=== PATIENT | female | born 1950 | race Caucasian/White ===

== ENCOUNTER 2024-07-08 11:56 | Emergency (ER) | payer OTHER, MEDICAID, SELFPAY ==
[2024-07-08] VITALS (7 sets, daily range): BP systolic 128–191; BP diastolic 72–87; PULSE 60–88; RESP 18–97; TEMP 36.4–36.7; O2SAT 97–100; BMI 32.9
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
[2024-07-08] MEDS: ONDANSETRON INJ 2 MG/ML INJ 2 ML 4 MG IV ×2 (12:32→13:20)
[2024-07-08] MEDS: fentaNYL CIT INJ 50 mCg/ML AMP 2ML IVP (12:32)
[2024-07-08 12:36] LABS: Basophils % (Auto) 0 % (0-2.5); Eosinophils # (Auto) 0.1 Thou/mm3 (0.0-0.5); Eosinophils % (Auto) 2 % (0-10); Hematocrit 38.7 % (36.0-46.0); Hemoglobin 12.7 g/dL (12.0-16.0); Immature Granulocytes % (Auto) 0 % (0-0); Immature Granulocytes Auto 0.02 Thou/mm3 (0.00-0.00); Lymphocytes # (Auto) 2.4 Thou/mm3 (1.0-4.8); Lymphocytes % (Auto) 36 % (10-50); Mean Corpuscular HGB Conc 32.8 g/dl (31.0-37.0); Mean Corpuscular Hemoglobin 28.4 pg (25.0-35.0); Mean Corpuscular Volume 87 fL (80-100); Monocytes # (Auto) 0.4 Thou/mm3 (0.0-0.8); Monocytes % (Auto) 6 % (0-12); Neutrophils # (Auto) 3.8 Thou/mm3 (1.8-7.7); Neutrophils % (Auto) 56 % (37-80); Nucleated Red Blood Cell % 0 /100 WBC (0); Platelet Count 275 Thou/mm3 (140-440); RDW Standard Deviation 40.6 fL (36.4-46.3); Red Blood Count 4.47 Miln/mm3 (4.00-5.20); White Blood Count 6.9 Thou/mm3 (3.6-11.0)
[2024-07-08 12:57] LABS: Partial Thromboplastin Time 28.9 Seconds (22.0-36.0); Prothrombin Time 11.3 Seconds (9.0-12.2)
[2024-07-08 12:59] LABS: Alanine Aminotransferase 9 U/L (10-49); Albumin, Serum 4.5 gm/dL (3.4-4.8); Albumin/Globulin Ratio 1.7 (1.2-2.2); Alkaline Phosphatase 88 U/L (46-116); Anion Gap 7 (7-16); Aspartate Amino Transferase 15 U/L (0-34); BUN/Creatinine Ratio 11 Ratio (12-20); Bilirubin,Total 0.3 mg/dL (0.3-1.2); Blood Urea Nitrogen 10 mg/dL (9-23); Calcium 9.9 mg/dL (8.3-10.6); Calcium (Corrected) 9.9 mg/dL (8.5-10.1); Carbon Dioxide 25.6 mMol/L (20.0-31.0); Chloride 108 mMol/L (98-107); Creatinine (Component) 0.9 mg/dL (0.6-1.3); Estimated Creatinine Clearance 55.1 mL/min (>60); Globulin 2.6 gm/dL (2.3-3.5); Glucose 151 mg/dL (74-106); Osmolality,Calculated 283 (275-295); Potassium 4.2 mMol/L (3.4-5.1); Sodium 141 mMol/L (136-145); Total Protein 7.1 gm/dL (5.7-8.2); eGFR > 60 See Note
[2024-07-08] MEDS: MORPHINE SULF INJ 10 MG/ML VIAL 4 MG IVP (13:20)
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
== END 2024-07-08 16:20 | disposition home or self-care (01) ==
PROVIDERS: Registered Nurse General Practice; Emergency Provider Emergency Medicine; PCP Internal Medicine
DX: S92.322A Displaced fracture of second metatarsal bone, left foot, initial encounter for closed fracture (principal); S92.332A Displaced fracture of third metatarsal bone, left foot, initial encounter for closed fracture; S92.342A Displaced fracture of fourth metatarsal bone, left foot, initial encounter for closed fracture; S92.352A Displaced fracture of fifth metatarsal bone, left foot, initial encounter for closed fracture; S01.91XA Laceration without foreign body of unspecified part of head, initial encounter; I48.91 Unspecified atrial fibrillation; I25.10 Atherosclerotic heart disease of native coronary artery without angina pectoris; I11.0 Hypertensive heart disease with heart failure; I50.9 Heart failure, unspecified; E78.00 Pure hypercholesterolemia, unspecified; R10.13 Epigastric pain; I25.2 Old myocardial infarction; Z95.5 Presence of coronary angioplasty implant and graft; Z79.01 Long term (current) use of anticoagulants; F17.210 Nicotine dependence, cigarettes, uncomplicated; Z88.6 Allergy status to analgesic agent; V89.2XXA Person injured in unspecified motor-vehicle accident, traffic, initial encounter; Y92.410 Unspecified street and highway as the place of occurrence of the external cause; T40.2X5A Adverse effect of other opioids, initial encounter; Y92.238 Other place in hospital as the place of occurrence of the external cause
CPT/HCPCS: 36415; 70450; 71045; 71260; 72125; 73630; 74177; 80053; 85025; 85610; 85730; 93005; 96374; 96375; 96376; 99285; A4649; J2270; J2405; J3010; Q9967

== ENCOUNTER 2024-07-11 15:43 | Emergency (ER) | payer OTHER, SELFPAY ==
[2024-07-11 15:45] VITALS: BMI 32.9
[2024-07-11 16:14] VITALS: BP 153/94; PULSE 64; RESP 18; TEMP 36.9; O2SAT 99
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
== END 2024-07-11 16:52 | disposition home or self-care (01) ==
PROVIDERS: Emergency Provider Emergency Medicine
DX: S92.902A Unspecified fracture of left foot, initial encounter for closed fracture (principal); V89.2XXA Person injured in unspecified motor-vehicle accident, traffic, initial encounter
CPT/HCPCS: 99281

== ENCOUNTER → 2024-10-02 | Outpatient (CLI) | payer OTHER, SELFPAY ==
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
== END | disposition home or self-care (01) ==
LOC: CDIM 10:09
PROVIDERS: PCP Family Medicine; Referring Provider Physician Assistant; Visit Provider Physician Assistant
DX: S92.322A Displaced fracture of second metatarsal bone, left foot, initial encounter for closed fracture (principal); S92.332A Displaced fracture of third metatarsal bone, left foot, initial encounter for closed fracture; S92.342A Displaced fracture of fourth metatarsal bone, left foot, initial encounter for closed fracture; S92.352A Displaced fracture of fifth metatarsal bone, left foot, initial encounter for closed fracture; S39.92XA Unspecified injury of lower back, initial encounter; V89.2XXD Person injured in unspecified motor-vehicle accident, traffic, subsequent encounter
CPT/HCPCS: 72110; 73630

== ENCOUNTER 2024-10-31 12:45 | Emergency (ER) | payer OTHER, SELFPAY ==
--- NOTE | 2024-10-31 12:53 | EKG_ITS ---
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
[2024-10-31 13:05] VITALS: BP 171/93; PULSE 62; RESP 18; TEMP 36.6; O2SAT 96; BMI 32.9
--- NOTE | 2024-10-31 13:06 | PD.EDCHEST ---
ED Chest Pain RME/HPI General Chief Complaint: Chest Pain Stated Complaint: Chest pain radiating to her back, SOB Time Seen by Provider: 10/31/24 13:06 Arrival date/time: 10/31/24 12:45 Limitations: no limitations RME / HPI RME / HPI narrative: 74 year old female with history of atrial fibrillation, CAD s/p stents x7, s/p pacemaker placement, hypertension, hyperlipidemia presents to the ED for evaluation of chest pain beginning shortly after waking at 06:30 AM today. Described as sharp stabbing in sensation that is located most to the left side of chest with radiation to mid back, rating as moderate-severe. States pain has remained unchanged since onset. Aggravated with taking a deep breath and associated with feeling short of breath. No other associated symptoms or complaints reported. Denies fevers, chills, sweats, cough, n/v, or abdominal pain. Related Data Home Medications ?Medication ?Instructions ?Recorded ?Confirmed clopidogrel 75 mg tablet 75 mg PO QDAY 08/06/18 02/23/24 apixaban 2.5 mg tablet (Eliquis) 5 mg PO QDAY 04/08/21 02/23/24 atorvastatin 40 mg tablet 40 mg PO HS 04/08/21 02/23/24 alprazolam 0.25 mg tablet 0.25 mg PO QDAY 02/23/24 02/23/24 Held on 02/23/24. Instructions: Resume on 02/24/24. metoprolol succinate 50 mg 25 mg PO QDAY 02/23/24 02/23/24 tablet,extended release 24 hr (Toprol XL) pantoprazole 40 mg tablet,delayed 80 mg PO QDAY 02/23/24 02/23/24 release Previous Rx's ?Medication ?Instructions ?Recorded sucralfate 100 mg/mL oral 5 ml PO QID #420 mL 03/10/24 suspension (Carafate) famotidine 20 mg tablet 20 mg PO QDAY #30 tabs 07/08/24 meloxicam 7.5 mg tablet 7.5 mg PO QDAY #10 tabs 07/08/24 famotidine 40 mg tablet (Pepcid) 40 mg PO QDAY #30 tabs 10/31/24 metoclopramide HCl 5 mg tablet 5 mg PO Q8H #30 tabs 10/31/24 (Reglan) Allergies Allergy/AdvReac Type Severity Reaction Status Date / Time aspirin Allergy Severe Nausea Verified 10/31/24 12:50 codeine Allergy Severe CARDIAC Verified 10/31/24 12:50 ARREST Penicillins Allergy Severe WELTS Verified 10/31/24 12:50 morphine Allergy Verified 10/31/24 12:50 Review of Systems Review of Systems Systems Reviewed: All systems reviewed, normal except as documented Past Medical History Past Medical History NEUROLOGIC: Positive Neurological Disorders and Migraine CARDIAC: Positive Cardiac Disorders, Atrial Fibrillation, Angina, Coronary Artery Disease, Hypercholesterolemia, Congestive Heart Failure and Hypertension RESPIRATORY: Positive Pneumonia (COVID) GASTROINTESTINAL: Positive Gastrointestinal Disorders, Gall Bladder Disease and Gastroesophageal Reflux Disease REPRODUCTIVE: Positive Previous Pregnancies MUSCULOSKELETAL: Positive Arthritis PSYCHO/SOCIAL: Positive Anxiety OTHER HISTORY: Positive Chicken Pox, Measles and Mumps Family History FAMILY HISTORY: Positive Family Cancer; Negative Family Psychiatric Problems, Family Respiratory Disorders, Family Cardiac Disorders, Family Gastrointestinal Problems, Family Surgery or Family Anesthesia Reaction Surgical History SURGICAL: Positive Cardiac Surgery, Coronary Stent, Cardiac Catheterization, Pacemaker, Angiogram, Hysterectomy and Section; Negative Endocrine Surgery, Thyroidectomy, Ear Surgery, Nephrectomy, Joint Replacement or Neurologic Surgery Social History SMOKING STATUS: Current some day smoker SUBSTANCE USE: does not use ED Exam General Limitations: Present no limitations General appearance: Present alert and in no apparent distress Head Head exam: Present atraumatic, normocephalic and normal inspection Eye Eye exam: Present normal appearance, PERRL and EOMI ENT ENT exam: Present normal exam, normal oropharynx and mucous membranes moist Neck Neck exam: Present normal inspection, full ROM and trachea midline Chest Chest inspection: Present symmetric chest wall rise and other (tenderness in the lower chest to palpation ) Respiratory Respiratory exam: Present normal lung sounds bilaterally Cardiovascular Cardiovascular exam: Present regular rate, normal rhythm and normal heart sounds Abdominal Exam Abdominal exam: Present soft and normal bowel sounds Extremities Exam Extremities exam: Present normal inspection and full ROM Back Exam Back exam: Present full ROM and other (tenderness to posterior lower chest/back to palpation) Neurological Exam Neurological exam: Present alert, oriented X3 and CN II-XII intact Psychiatric Psychiatric exam: Present normal affect and normal mood Skin Skin exam: Present warm, dry, intact and normal color Course Quality Measures none Orders Category Date Time Status CT Screening NOW Care 10/31/24 13:[address] Screening NOW Care 10/31/24 15:06 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 Care 10/31/24 13:06 Active Continuous Pulse Oximetry ONCE Care 10/31/24 13:06 Active EKG (ED ONLY) *Do not use* NOW Care 10/31/24 12:53 Completed EKG (ED ONLY) *Do not use* NOW Care 10/31/24 13:06 Completed Insert IV STAT Care 10/31/24 13:[address] angio chest Stat Exams 10/31/24 15:05 Completed EKG (ED Only) Stat Exams 10/31/24 12:53 Draft EKG (ED Only) Stat Exams 10/31/24 13:06 Ordered XR chest 1V portable Stat Exams 10/31/24 13:06 Completed B-Type Natriuretic Peptide Stat Lab 10/31/24 14:47 Completed CBC Stat Lab 10/31/24 14:47 Completed Comprehensive Metabolic Panel Stat Lab 10/31/24 15:20 Completed HCG,Qualitative Serum Stat Lab 10/31/24 15:20 Completed Magnesium Stat Lab 10/31/24 15:20 Completed Partial Thromboplastin Time Stat Lab 10/31/24 15:20 Completed Prothrombin Time with INR Stat Lab 10/31/24 15:20 Completed Troponin I Stat Lab 10/31/24 15:20 Completed DiphenhydrAMINE INJ [Benadryl Inj] Med 10/31/24 15:17 Discontinued 25 mg IVP X1 ONE HYDROmorphone INJ [Dilaudid Inj] Med 10/31/24 13:06 Discontinued 4 mg IVP Q30M PRN Metoclopramide Inj [Reglan Inj] Med 10/31/24 15:17 Discontinued 10 mg IVP X1 ONE Nitroglycerin [Nitrostat 1/150] Med 10/31/24 13:06 Active 0.4 mg SL Q5M PRN Ondansetron Inj [Zofran Inj] Med 10/31/24 13:06 Active 4 mg IVP Q1HR PRN Oxygen Delivery NOW RT 10/31/24 13:06 Active Vital Signs Vital signs: Vital Signs Temperature 97.9 F 10/31/24 13:05 Pulse Rate 62 10/31/24 13:05 Respiratory Rate 18 10/31/24 13:05 Blood Pressure 171/93 H 10/31/24 13:05 Pulse Oximetry (%) 96 10/31/24 13:05 Oxygen Delivery Method Room Air 10/31/24 13:05 Pulse ox is 96% on room air which is adequate. Chest Pain MDM Narrative MDM Narrative:: IMadiha, domenic scribing for and in the presence of Dr. Car. Assessment: nonspecific chest pain, high risk CAD, pain most likely musculoskeletal per exam DDx: ACS, aortic aneurysm, aortic dissection, PE Plan: CT chest, cardiology workup and pain medication Findings today suggestive of gastritis and chest pain due to GERD. Plan to DC home with Pepcid and Reglan. Patient data External records reviewed:: [facility] previous records (I reviewed ED visit on 07/11/2024 ) Clinical information provided by:: patient Social determinants that could affect healthcare access:: none Patient has the following chronic illnesses:: atrial fibrillation, CAD s/p stents x7, s/p pacemaker placement, hypertension, hyperlipidemia How is presenting disease/condition affected by chronic disease/condition?: exacerbated by Evaluation data The following diagnostics were reviewed and interpreted by me:: lab results, radiology exam(s) and EKG tracing(s) (10/31/2024 @ 12:53. NSR, atrial paced, rate 63, LAD, no LVH, normal QT, no ischemia. ) Lab and/or radiology exams considered but not ordered:: None Interpretation Summary: Ordering Physician: Patrick Palomino MD Date of Service: 10/31/24 Procedure(s): XR chest 1V portable Accession Number(s): [id number] cc: Patrick Palomino MD; Papi Ozuna MD~ Examination: PA chest single view TECHNIQUE: Upright PA chest single view Date and time: October 31, 2024, 1336 hours Comparison July 08, 2024 INDICATIONS: Chest pain beginning 2 days ago. FINDINGS: Mild prominence cardiac contour Moderate vascular congestion. No lobar pneumonia or pulmonary edema. Cardiac leads satisfactory position. Moderate osteopenia IMPRESSION: Moderate vascular congestion Dictated By: Papi Ozuna MD Signed By: <Electronically signed by Papi Ozuna MD in OV> 10/31/24 1343 Ordering Physician: Ruel Scott PA-C Date of Service: 10/31/24 Procedure(s): CT angio chest Accession Number(s): [id number] cc: Ruel Scott PA-C; Papi Ozuna MD; Isaak Hendrix MD~ Examination: CTA chest with intravenous contrast 2-D reconstructions 3-D reconstructions, vascular Date and time of exam: October 31, 2024, 1607 hours Comparison July 08, 2024 INDICATIONS: Onset chest pain shortness of breath today, clinical diagnosis pulmonary emboli. CTDI: vol (mGy) 18.8. DLP: (mGycm) 358. Technique: Multiple axial sections of the thorax have been obtained. 3 mm slice thickness, from below the hemidiaphragms to above the apices of the lungs. Mediastinal and lung density settings have been obtained. 2-D sagittal and coronal reconstructions. 3-D angiographic renderings, 3-D volume renderings, 3D post processing, vascular maximum intensity projections obtained. Contrast administered is 100 cc Isovue 370 intravenous.. Low dose protocols were performed. One or more of the following dose reduction techniques were used; automated exposure control, adjustment of the mA and/or KV according to patient size, use of iterative reconstruction technique. Findings: No thoracic aortic aneurysmal dilatation or dissection Main pulmonary artery segment 31 mm No pulmonary artery filling defects 2 mm pulmonary nodule posterior left lung image 120 Subtle opacity in both lower lobes consistent with pneumonia No liver or splenic lesion Common hepatic duct 12 mm No pancreatic mass Diffuse moderate thoracic degenerative disc disease IMPRESSION: Negative for pulmonary artery emboli 2 mm pulmonary nodule posterior left lung, consider 6 month follow-up CT chest without contrast Common hepatic duct 12 mm, clinical correlation advised, consider hepatobiliary sonography follow-up Dictated By: Papi Ozuna MD Signed By: <Electronically signed by Papi Ozuna MD in OV> 10/31/24 2015 Medications / Prescriptions Medications or Prescriptions considered but not ordered:: None Medication administrations:: Medication Administration History Nitroglycerin (Nitroglycerin 0.4 Mg Subl Btl #25) 0.4 mg SL Q5M PRN PRN Reason: CHEST PAIN Ondansetron HCl (Ondansetron Inj 2 Mg/Ml Inj 2 Ml) 4 mg IVP Q1HR PRN PRN Reason: PERSISTENT NAUSEA OR VOMITING Discontinued Medications Diphenhydramine HCl (Diphenhydramine Inj 50 Mg/Ml Vial) 25 mg IVP X1 ONE Stop: 10/31/24 15:18 Last Admin: 10/31/24 16:02 Dose: 25 mg Documented By: VINCENT Hydromorphone HCl (Hydromorphone Inj 2 Mg/Ml Vial) 4 mg IVP Q30M PRN PRN Reason: CHEST PAIN Stop: 10/31/24 15:06 Metoclopramide HCl (Metoclopramide Inj 5 Mg/Ml Vial 2 Ml) 10 mg IVP X1 ONE; Protocol Stop: 10/31/24 15:18 Last Admin: 10/31/24 16:01 Dose: 10 mg Documented By: VINCENT See above Consultations Consultation(s) initiated? (list below): No Diagnosis Chest Pain Differential Diagnosis: stable angina, atypical chest pain, st elevation myocardial infarction, costochondritis, chest pain and biliary colic Most likely diagnosis given after review of the tests above:: Gastritis Chest pain due to GERD Admission Indicated Admission indicated?: not indicated Admission Request Was there a request for admission?: No Disposition Plan Disposition Plan: Discharge Discharge Attestation Discharge Attestation: The patient and all family members were given an opportunity to ask questions and understood the discharge instructions. Discharge instructions specifically effects, indications for sooner follow up or return to the emergency department, and the expected course of current diagnosis. Patient condition: Stable Discharge Plan Plan Patient Disposition: HOME (Self Care) Prescriptions/Referrals Prescriptions/Med Rec: New famotidine [Pepcid] 40 mg tablet 40 mg PO QDAY Qty: 30 0RF metoclopramide HCl [Reglan] 5 mg tablet 5 mg PO Q8H Qty: 30 0RF No Action clopidogrel 75 mg Tablet 75 mg PO QDAY Eliquis 2.5 mg tablet 5 mg PO QDAY atorvastatin 40 mg tablet 40 mg PO HS Patient Comments: TAKE ONE TABLET BY MOUTH EVERY EVENING AT BED TIME FOR CHOLESTEROL sucralfate [Carafate] 100 mg/mL suspension 5 ml PO QID Qty: 420 0RF Rx Instructions: swish in mouth and swallow; use after food/drink alprazolam 0.25 mg tablet 0.25 mg PO QDAY pantoprazole 40 mg tablet,delayed release (DR/EC) 80 mg PO QDAY metoprolol succinate [Toprol XL] 50 mg tablet extended release 24 hr 25 mg PO QDAY meloxicam 7.5 mg tablet 7.5 mg PO QDAY Qty: 10 0RF famotidine 20 mg tablet 20 mg PO QDAY Qty: 30 0RF Referrals: Isaak Hendrix MD [Primary Care Provider] - In 1 week Problem List Clinical Impression: Gastritis, Chest pain due to GERD Patient/Caregiver Discharge Instructions Discharge Activity: resume usual activities Education Materials: Complementary Care for Pain, Communicating About Pain, ED Chest Pain, Uncertain Cause, ED GERD (Adult), ED Gastritis (Adult) Additional Instructions: Follow-up with your doctor in 3 to 5 days Print Language: Irish Stand Alone Forms: Tiffany Award Info., Patient Portal Info Letter
[2024-10-31 15:00] LABS: Basophils % (Auto) 0 % (0-2.5); Eosinophils # (Auto) 0.2 Thou/mm3 (0.0-0.5); Eosinophils % (Auto) 2 % (0-10); Hematocrit 37.5 % (36.0-46.0); Hemoglobin 12.7 g/dL (12.0-16.0); Immature Granulocytes % (Auto) 0 % (0-0); Immature Granulocytes Auto 0.02 Thou/mm3 (0.00-0.00); Lymphocytes # (Auto) 2.3 Thou/mm3 (1.0-4.8); Lymphocytes % (Auto) 29 % (10-50); Mean Corpuscular HGB Conc 33.9 g/dl (31.0-37.0); Mean Corpuscular Hemoglobin 29.3 pg (25.0-35.0); Mean Corpuscular Volume 86 fL (80-100); Monocytes # (Auto) 0.6 Thou/mm3 (0.0-0.8); Monocytes % (Auto) 7 % (0-12); Neutrophils # (Auto) 4.7 Thou/mm3 (1.8-7.7); Neutrophils % (Auto) 60 % (37-80); Nucleated Red Blood Cell % 0 /100 WBC (0); Platelet Count 247 Thou/mm3 (140-440); RDW Standard Deviation 40.7 fL (36.4-46.3); Red Blood Count 4.34 Miln/mm3 (4.00-5.20); White Blood Count 7.8 Thou/mm3 (3.6-11.0)
--- NOTE | 2024-10-31 15:05 | XR_ITS ---
Examination: CTA chest with intravenous contrast 2-D reconstructions 3-D reconstructions, vascular Date and time of exam: October 31, 2024, 1607 hours Comparison July 08, 2024 INDICATIONS: Onset chest pain shortness of breath today, clinical diagnosis pulmonary emboli. CTDI: vol (mGy) 18.8. DLP: (mGycm) 358. Technique: Multiple axial sections of the thorax have been obtained. 3 mm slice thickness, from below the hemidiaphragms to above the apices of the lungs. Mediastinal and lung density settings have been obtained. 2-D sagittal and coronal reconstructions. 3-D angiographic renderings, 3-D volume renderings, 3D post processing, vascular maximum intensity projections obtained. Contrast administered is 100 cc Isovue 370 intravenous.. Low dose protocols were performed. One or more of the following dose reduction techniques were used; automated exposure control, adjustment of the mA and/or KV according to patient size, use of iterative reconstruction technique. Findings: No thoracic aortic aneurysmal dilatation or dissection Main pulmonary artery segment 31 mm No pulmonary artery filling defects 2 mm pulmonary nodule posterior left lung image 120 Subtle opacity in both lower lobes consistent with pneumonia No liver or splenic lesion Common hepatic duct 12 mm No pancreatic mass Diffuse moderate thoracic degenerative disc disease IMPRESSION: Negative for pulmonary artery emboli 2 mm pulmonary nodule posterior left lung, consider 6 month follow-up CT chest without contrast Common hepatic duct 12 mm, clinical correlation advised, consider hepatobiliary sonography follow-up
[2024-10-31 15:16] LABS: B-Type Natriuretic Peptide 62 pg/mL (0-100)
[2024-10-31 15:51] LABS: HCG,Qualitative Serum Negative
[2024-10-31 15:53] LABS: Partial Thromboplastin Time 30.2 Seconds (22.0-36.0); Prothrombin Time 10.9 Seconds (9.0-12.2)
[2024-10-31 15:58] LABS: Alanine Aminotransferase 17 U/L (10-49); Albumin, Serum 4.2 gm/dL (3.4-4.8); Albumin/Globulin Ratio 1.6 (1.2-2.2); Alkaline Phosphatase 95 U/L (46-116); Anion Gap 5 (7-16); Aspartate Amino Transferase 22 U/L (0-34); BUN/Creatinine Ratio 7 Ratio (12-20); Bilirubin,Total 0.4 mg/dL (0.3-1.2); Blood Urea Nitrogen 7 mg/dL (9-23); Calcium 9.8 mg/dL (8.3-10.6); Calcium (Corrected) 9.8 mg/dL (8.5-10.1); Carbon Dioxide 26.6 mMol/L (20.0-31.0); Chloride 108 mMol/L (98-107); Estimated Creatinine Clearance 48.1 mL/min (>60); Globulin 2.7 gm/dL (2.3-3.5); Glucose 98 mg/dL (74-106); Magnesium 2.2 mg/dL (1.6-2.6); Osmolality,Calculated 277 (275-295); Potassium 4.7 mMol/L (3.4-5.1); Sodium 140 mMol/L (136-145); Total Protein 6.9 gm/dL (5.7-8.2); Troponin I < 0.020 ng/mL (0.0-0.045); eGFR 59 See Note
[2024-10-31] MEDS: METOCLOPRAMIDE INJ 5 MG/ML VIAL 2 ML 10 MG IVP (16:01)
[2024-10-31] MEDS: DiphenhydrAMINE INJ 50 MG/ML VIAL 25 MG IVP (16:02)
== END 2024-10-31 18:02 | disposition home or self-care (01) ==
PROVIDERS: Physician Assistant; Emergency Provider Emergency Medicine; PCP Family Medicine
DX: K29.70 Gastritis, unspecified, without bleeding (principal); K21.9 Gastro-esophageal reflux disease without esophagitis; R94.31 Abnormal electrocardiogram [ECG] [EKG]; R91.1 Solitary pulmonary nodule; R09.89 Other specified symptoms and signs involving the circulatory and respiratory systems; I25.10 Atherosclerotic heart disease of native coronary artery without angina pectoris; Z95.5 Presence of coronary angioplasty implant and graft; I48.91 Unspecified atrial fibrillation; E78.5 Hyperlipidemia, unspecified; I10 Essential (primary) hypertension
CPT/HCPCS: 36415; 71045; 71275; 80053; 83735; 83880; 84484; 84703; 85025; 85610; 85730; 93005; 96374; 96375; 99285; A4649; J1200; J2765; Q9967

== ENCOUNTER → 2025-01-22 | Outpatient (CLI) | payer OTHER, MEDICAID, SELFPAY ==
[2025-01-22 08:28] LABS: Basophils # (Auto) 0.0 Thou/mm3 (0.0-0.2); Basophils % (Auto) 1 % (0-2.5); Eosinophils # (Auto) 0.1 Thou/mm3 (0.0-0.5); Eosinophils % (Auto) 3 % (0-10); Hematocrit 38.8 % (36.0-46.0); Hemoglobin 12.6 g/dL (12.0-16.0); Immature Granulocytes Auto 0.02 Thou/mm3 (0.00-0.00); Lymphocytes # (Auto) 2.1 Thou/mm3 (1.0-4.8); Lymphocytes % (Auto) 38 % (10-50); Mean Corpuscular HGB Conc 32.5 g/dl (31.0-37.0); Mean Corpuscular Hemoglobin 28.9 pg (25.0-35.0); Mean Corpuscular Volume 89 fL (80-100); Monocytes # (Auto) 0.4 Thou/mm3 (0.0-0.8); Monocytes % (Auto) 8 % (0-12); Neutrophils # (Auto) 2.9 Thou/mm3 (1.8-7.7); Neutrophils % (Auto) 51 % (37-80); Nucleated Red Blood Cell # 0.00 Thou/mm3 (0.00-0.00); Nucleated Red Blood Cell % 0 /100 WBC (0); Platelet Count 238 Thou/mm3 (140-440); RDW Standard Deviation 42.5 fL (36.4-46.3); Red Blood Count 4.36 Miln/mm3 (4.00-5.20); White Blood Count 5.6 Thou/mm3 (3.6-11.0)
[2025-01-22 08:49] LABS: Alanine Aminotransferase 13 U/L (10-49); Albumin, Serum 4.1 gm/dL (3.4-4.8); Albumin/Globulin Ratio 1.6 (1.2-2.2); Alkaline Phosphatase 86 U/L (46-116); Anion Gap 7 (7-16); Aspartate Amino Transferase 17 U/L (0-34); BUN/Creatinine Ratio 10 Ratio (12-20); Bilirubin,Total 0.4 mg/dL (0.3-1.2); Blood Urea Nitrogen 8 mg/dL (9-23); Calcium 10.1 mg/dL (8.3-10.6); Calcium (Corrected) 10.1 mg/dL (8.5-10.1); Carbon Dioxide 26.4 mMol/L (20.0-31.0); Cardiac Risk Estimate 3.1 RATIO (3.7-5.6); Chloride 110 mMol/L (98-107); Cholesterol 144 mg/dL (132-200); Creatinine (Component) 0.8 mg/dL (0.6-1.3); Free T4 (Free Thyroxine) 1.12 ng/dL (0.89-1.76); Globulin 2.6 gm/dL (2.3-3.5); Glucose 92 mg/dL (74-106); HDL Cholesterol 46 mg/dL (40-60); LDL Cholesterol,Calculated 62 mg/dL (0-130); Osmolality,Calculated 283 (275-295); Potassium 4.5 mMol/L (3.4-5.1); Sodium 143 mMol/L (136-145); Thyroid Stimulating Hormone 1.65 uIU/mL (0.55-4.78); Total Protein 6.7 gm/dL (5.7-8.2); Triglycerides 181 mg/dL (30-150); eGFR > 60 See Note
== END | disposition home or self-care (01) ==
PROVIDERS: PCP Family Medicine; Referring Provider Family Medicine; Visit Provider Family Medicine
DX: R79.9 Abnormal finding of blood chemistry, unspecified (principal); I10 Essential (primary) hypertension; E78.2 Mixed hyperlipidemia
CPT/HCPCS: 36415; 80053; 80061; 84439; 84443; 85025

== ENCOUNTER 2025-03-06 17:38 | Emergency (ER) | payer OTHER, MEDICAID, SELFPAY ==
--- NOTE | 2025-03-06 17:40 | XR_ITS ---
Examination: Ribs, left, with PA chest, 5 views Technique: Chest PA, RIBS AP, RPO, LPO, AP coned lower ribs 5 views Exam date and time: March 06, 2025, 1804 hours INDICATIONS: Patient heard a pop leaning over today with rib pain Findings: Mild prominence left ventricle Cardiac leads satisfactory position No pneumothorax Moderate osteopenia No acute rib fractures IMPRESSION: No pneumothorax No acute rib fractures
--- NOTE | 2025-03-06 17:41 | PD.EDABDPN ---
ED Abdominal Pain RME/HPI General Chief Complaint: Abdominal Pain Stated complaint: LUQ ABD PAIN Time seen by provider: 03/06/25 17:40 Arrival date/time: 03/06/25 17:38 73-year-old female patient with significant history of hypertension, currently taking Plavix, Eliquis, came in for evaluation regarding left anterior chest wall bruising. According to her she was visiting her sister on the third floor, and tried to kiss her and patient hit her left anterior chest wall on the bed railings. Resulting into pain, and contusion. Pain is worse with the present. Patient denies any shortness of breath. Patient is worried for rib fracture. Incident happened few minutes prior to ER visit. Related Data Home Medications ?Medication ?Instructions ?Recorded ?Confirmed clopidogrel 75 mg tablet 75 mg PO QDAY 08/06/18 02/23/24 apixaban 2.5 mg tablet (Eliquis) 5 mg PO QDAY 04/08/21 02/23/24 atorvastatin 40 mg tablet 40 mg PO HS 04/08/21 02/23/24 alprazolam 0.25 mg tablet 0.25 mg PO QDAY 02/23/24 02/23/24 Held on 02/23/24. Instructions: Resume on 02/24/24. metoprolol succinate 50 mg 25 mg PO QDAY 02/23/24 02/23/24 tablet,extended release 24 hr (Toprol XL) pantoprazole 40 mg tablet,delayed 80 mg PO QDAY 02/23/24 02/23/24 release Previous Rx's ?Medication ?Instructions ?Recorded sucralfate 100 mg/mL oral 5 ml PO QID #420 mL 03/10/24 suspension (Carafate) famotidine 20 mg tablet 20 mg PO QDAY #30 tabs 07/08/24 meloxicam 7.5 mg tablet 7.5 mg PO QDAY #10 tabs 07/08/24 famotidine 40 mg tablet (Pepcid) 40 mg PO QDAY #30 tabs 10/31/24 metoclopramide HCl 5 mg tablet 5 mg PO Q8H #30 tabs 10/31/24 (Reglan) lidocaine 5 % topical patch 2 patch topical Q24H #30 ea 03/06/25 Allergies Allergy/AdvReac Type Severity Reaction Status Date / Time aspirin Allergy Severe Nausea Verified 03/06/25 17:42 codeine Allergy Severe CARDIAC Verified 03/06/25 17:42 ARREST Penicillins Allergy Severe WELTS Verified 03/06/25 17:42 morphine Allergy Verified 03/06/25 17:42 Review of Systems Review of Systems Narrative Review of Systems: Review of system reviewed and within normal limits except mentioned in HPI ED Exam Narrative Physical exam: VITAL SIGNS: Reviewed. GENERAL APPEARANCE: Alert and interactive, follows commands, no acute distress, HEAD AND FACE: Non-traumatic. ENT: PERRL, pink conjunctivitis, eyelid no trauma, Mucous membrane moist. NECK: Supple, nontender, no nuchal rigidity. CHEST: + Right anterior chest wall tenderness, mild bruising noted, mild swelling noted, no crepitus, no paradoxical movement, no retractions. LUNGS: Clear, well ventilated, symmetric, no rales, no wheezing, no ronchi, no stridor, good breath sounds bilaterally. HEART: Regular rate, regular rhythm, no murmur, no gallops. ABDOMEN: Soft, positive bowel sounds, nondistended, no guarding, nontender, no rebound, no masses, RECTAL: Deferred. GENITAL: Deferred. NEUROLOGICAL: Gross motor function intact sensory function intact, Appropriate for age. MUSCULOSKELETAL: low back nontender, full range of motion. EXTREMITIES: Nontender, full range of motion. SKIN: Color pink, dry, no rash, no lacerations, no abrasions, no contusions. LYMPHATICS: Deferred. Course Quality Measures none Orders Category Date Time Status XR ribs LT min 3V w CXR1V Stat Exams 03/06/25 17:40 Completed Lidocaine 5% Patch Med 03/06/25 17:40 Discontinued 1 patch TOP X1 ONE Lidocaine 5% Patch Med 03/06/25 19:41 Discontinued 1 patch TOP X1 ONE Vital Signs Vital signs: Vital Signs Temperature 98.7 F 03/06/25 17:53 Pulse Rate 76 03/06/25 17:53 Respiratory Rate 18 03/06/25 17:53 Blood Pressure 155/85 H 03/06/25 17:53 Pulse Oximetry (%) 96 03/06/25 17:53 Oxygen Delivery Method Room Air 03/06/25 17:53 Abdominal Pain MDM MDM Narrative MDM Narrative:: 73-year-old female patient with significant history of hypertension, currently taking Plavix, Eliquis, came in for evaluation regarding left anterior chest wall bruising. According to her she was visiting her sister on the third floor, and tried to kiss her and patient hit her left anterior chest wall on the bed railings. Resulting into pain, and contusion. Pain is worse with the present. Patient denies any shortness of breath. Patient is worried for rib fracture. Incident happened few minutes prior to ER visit. X-ray of the rib, with 1 view of chest, all came back unremarkable no rib fractures noted no pneumothorax no hemothorax noted. Results discussed with the patient. Patient received lidocaine patches with good relief. She is stable for discharge home Patient data External records reviewed:: None Clinical information provided by:: patient Social determinants that could affect healthcare access:: none Patient has the following chronic illnesses:: Sepsis CT scan IV contrast was A-fib, hypertension How is presenting disease/condition affected by chronic disease/condition?: exacerbated by Evaluation data The following diagnostics were reviewed and interpreted by me:: radiology exam(s) Lab and/or radiology exams considered but not ordered:: none Interpretation Summary: See results MDM Medications / Prescriptions Medications or Prescriptions considered but not ordered:: None Medication administrations:: Medication Administration History Discontinued Medications Lidocaine (Lidocaine 5% 1 Patch) 1 patch TOP X1 ONE Stop: 03/06/25 17:41 Last Admin: 03/06/25 18:16 Dose: 1 patch Documented By: YAMIL Lidocaine (Lidocaine 5% 1 Patch) 1 patch TOP X1 ONE Stop: 03/06/25 19:42 Lidocaine patch Consultations Consultation(s) initiated? (list below): No Diagnosis Differential diagnosis abdominal pain: other (Rib fracture chest wall contusion, pneumothorax) Most likely diagnosis given after review of the tests above:: Chest wall contusion Admission Indicated Admission indicated?: not indicated Admission Request Was there a request for admission?: No Disposition Plan Disposition Plan: Discharge Discharge Attestation Discharge Attestation: The patient and all family members were given an opportunity to ask questions and understood the discharge instructions. Discharge instructions specifically effects, indications for sooner follow up or return to the emergency department, and the expected course of current diagnosis. Patient condition: Stable Discharge Plan Plan Patient Disposition: HOME (Self Care) Discharge Disposition comment: Stable Prescriptions/Referrals Prescriptions/Med Rec: New lidocaine 5 % adhesive patch,medicated 2 patch topical Q24H Qty: 30 0RF Rx Instructions: leave on most painful area for up to 12 hrs No Action clopidogrel 75 mg Tablet 75 mg PO QDAY Eliquis 2.5 mg tablet 5 mg PO QDAY atorvastatin 40 mg tablet 40 mg PO HS Patient Comments: TAKE ONE TABLET BY MOUTH EVERY EVENING AT BED TIME FOR CHOLESTEROL sucralfate [Carafate] 100 mg/mL suspension 5 ml PO QID Qty: 420 0RF Rx Instructions: swish in mouth and swallow; use after food/drink alprazolam 0.25 mg tablet 0.25 mg PO QDAY pantoprazole 40 mg tablet,delayed release (DR/EC) 80 mg PO QDAY metoprolol succinate [Toprol XL] 50 mg tablet extended release 24 hr 25 mg PO QDAY meloxicam 7.5 mg tablet 7.5 mg PO QDAY Qty: 10 0RF famotidine 20 mg tablet 20 mg PO QDAY Qty: 30 0RF famotidine [Pepcid] 40 mg tablet 40 mg PO QDAY Qty: 30 0RF metoclopramide HCl [Reglan] 5 mg tablet 5 mg PO Q8H Qty: 30 0RF Referrals: Isaak Hendrix MD [Primary Care Provider, Family Practice] - In 1 week Problem List Clinical Impression: Chest wall contusion Patient/Caregiver Discharge Instructions Discharge Activity: activity as tolerated Education Materials: Bruises (Contusions) Additional Instructions: Thank you for the opportunity for serving you today. You are stable for discharged . You are advised to: Follow-up with your PCP in 1 to 2 days Return to ED for worsening of symptoms Increase oral fluids Take medication as prescribed You can take over the counter Tylenol as needed for pain Print Language: Croatian Stand Alone Forms: Tiffany Award Info., Patient Portal Info Letter PA/EAMON Supervising Physician JUAN/EAMON Supervising Physician: MD Mitesh
[2025-03-06 17:53] VITALS: BP 155/85; PULSE 76; RESP 18; TEMP 37.1; O2SAT 96; BMI 32.9
[2025-03-06] MEDS: LIDOCAINE 5% 1 PATCH TOP (18:16)
--- NOTE | 2025-03-06 20:18 | PC.NURSE ---
NO ANSWER FOR DISCHARGE
== END 2025-03-06 20:19 | disposition home or self-care (01) ==
PROVIDERS: Emergency Provider Emergency Medicine; PCP Family Medicine
DX: S20.212A Contusion of left front wall of thorax, initial encounter (principal); W22.03XA Walked into furniture, initial encounter; I10 Essential (primary) hypertension
CPT/HCPCS: 71101; 99282; J3490

== ENCOUNTER 2025-03-09 19:42 | Emergency (ER) | payer OTHER, MEDICAID, SELFPAY ==
[2025-03-09 19:43] VITALS: BMI 32.9
--- NOTE | 2025-03-09 20:00 | PD.EDFALL ---
ED Fall Injury RME/HPI General Chief Complaint: Fall Stated Complaint: FELL 2 DAYS AGO, PAIN ON LEFT SIDE Time Seen by Provider: 03/09/25 20:06 Arrival date/time: 03/09/25 19:42 RME / HPI RME / HPI Narrative: See [facility] for Dr. Cameron's HPI documentation. Related Data Home Medications ?Medication ?Instructions ?Recorded ?Confirmed clopidogrel 75 mg tablet 75 mg PO QDAY 08/06/18 02/23/24 apixaban 2.5 mg tablet (Eliquis) 5 mg PO QDAY 04/08/21 02/23/24 atorvastatin 40 mg tablet 40 mg PO HS 04/08/21 02/23/24 alprazolam 0.25 mg tablet 0.25 mg PO QDAY 02/23/24 02/23/24 Held on 02/23/24. Instructions: Resume on 02/24/24. metoprolol succinate 50 mg 25 mg PO QDAY 02/23/24 02/23/24 tablet,extended release 24 hr (Toprol XL) pantoprazole 40 mg tablet,delayed 80 mg PO QDAY 02/23/24 02/23/24 release Previous Rx's ?Medication ?Instructions ?Recorded sucralfate 100 mg/mL oral 5 ml PO QID #420 mL 03/10/24 suspension (Carafate) famotidine 20 mg tablet 20 mg PO QDAY #30 tabs 07/08/24 meloxicam 7.5 mg tablet 7.5 mg PO QDAY #10 tabs 07/08/24 famotidine 40 mg tablet (Pepcid) 40 mg PO QDAY #30 tabs 10/31/24 metoclopramide HCl 5 mg tablet 5 mg PO Q8H #30 tabs 10/31/24 (Reglan) lidocaine 5 % topical patch 2 patch topical Q24H #30 ea 03/06/25 hydrocodone 5 mg-acetaminophen 325 2 tab PO Q8H PRN pain #20 tabs 03/09/25 mg tablet lidocaine 5 % topical patch 2 patch topical QDAY PRN pain #30 03/09/25 (Lidoderm) ea cefdinir 300 mg capsule 300 mg PO BID #14 caps 03/10/25 Allergies Allergy/AdvReac Type Severity Reaction Status Date / Time aspirin Allergy Severe Nausea Verified 03/06/25 17:42 codeine Allergy Severe CARDIAC Verified 03/06/25 17:42 ARREST Penicillins Allergy Severe WELTS Verified 03/06/25 17:42 morphine Allergy Verified 03/06/25 17:42 Review of Systems Review of Systems Systems Reviewed: All systems reviewed, normal except as documented Past Medical History Past Medical History NEUROLOGIC: Positive Neurological Disorders and Migraine; Negative Seizures CARDIAC: Positive Cardiac Disorders, Atrial Fibrillation, Angina, Coronary Artery Disease, Hypercholesterolemia, Congestive Heart Failure and Hypertension RESPIRATORY: Positive Pneumonia (COVID); Negative Chronic Obstructive Pulmonary Disease (COPD) or Asthma GASTROINTESTINAL: Positive Gastrointestinal Disorders, Gall Bladder Disease and Gastroesophageal Reflux Disease GENITOURINARY: Negative Genitourinary Disorders or Renal Disease REPRODUCTIVE: Positive Previous Pregnancies; Negative Breast Cancer or Pelvic Inflammatory Disease MUSCULOSKELETAL: Positive Musculoskeletal Disorders and Arthritis ENDOCRINE: Negative Endocrine Disorders, Diabetes Mellitus Type 1 or Diabetes Mellitus Type 2 HEMATOLOGIC: Negative Blood Disorders or Sickle Cell Disease PSYCHO/SOCIAL: Positive Anxiety OTHER HISTORY: Positive Chicken Pox, Measles and Mumps; Negative Autoimmune Disease, Shingles, Blood Transfusions, Blood Transfusion Reaction, Anesthesia Reactions, Organ Transplant, MRSA, Clostridium Difficile, Breast Cancer or Cervical Cancer Family History FAMILY HISTORY: Positive Family Cancer; Negative Family Psychiatric Problems, Family Respiratory Disorders, Family Cardiac Disorders, Family Gastrointestinal Problems, Family Surgery or Family Anesthesia Reaction Surgical History SURGICAL: Positive Cardiac Surgery, Coronary Stent, Cardiac Catheterization, Pacemaker, Angiogram, Hysterectomy and Section; Negative Endocrine Surgery, Thyroidectomy, Ear Surgery, Nephrectomy, Joint Replacement, Neurologic Surgery or Organ Transplant Social History SMOKING STATUS: Current every day smoker SUBSTANCE USE: does not use ED Exam Narrative Physical exam: See [facility] for Dr. Cameron's physical exam documentation. Course Quality Measures none Orders Category Date Time Status CT chest wo con Stat Exams 03/09/25 20:07 Completed HYDROmorphone INJ [Dilaudid Inj] Med 03/09/25 20:07 Discontinued 1 mg IM X1 ONE Lidocaine 5% Patch Med 03/09/25 20:07 Discontinued 2 patch TOP X1 ONE Ondansetron Odt [Zofran Odt] Med 03/09/25 20:07 Discontinued 4 mg PO X1 ONE Vital Signs Vital signs: Vital Signs Temperature 98.1 F 03/09/25 20:37 Pulse Rate 76 03/09/25 20:37 Respiratory Rate 17 03/09/25 20:37 Blood Pressure 143/75 H 03/09/25 20:37 Pulse Oximetry (%) 95 03/09/25 20:37 Oxygen Delivery Method Room Air 03/09/25 20:37 Fall MDM Narrative MDM Narrative:: This section includes all my notes and documentations, including HPI, PE, and ED course. Eric Cameron MD HPI: 73-year-old female here with severe left rib cage pain. On 03/06/2025, 3 days ago, she fell here in the hospital as a visitor. She landed on her left rib cage. She was seen that day, on 03/06/2025. X-rays were negative. She reports intolerable pain. No shortness of breath. No other complaints. ROS: All negative except as documented in HPI. Physical Exam: General: Alert and oriented. In severe pain. Eyes: Conjunctivae and lids clear. ENT: No nasal congestion. Neck: Supple. Heart: RRR. Chest: Severe left rib cage tenderness with palpation. Lungs: No respiratory distress. Good air movement. No rhonchi, wheezing, rales. Abdomen: Soft and nontender. Skin: Warm and dry. Neuro: Alert and oriented X 3. I reviewed all diagnostic test results. My review of the CT chest report is left seventh rib fracture. At this point, diagnoses include: Fracture of left seventh rib Treatment here included: Dilaudid 1 mg IM Lidocaine patches Zofran ODT 4 mg She felt much better. Recommended supportive care. Based on my best medical judgment, made decision no further evaluation or treatment indicated at this time. Patient understands and agrees to the discharge instructions customized and printed, see below. Discharge instructions from Dr. Cameron: -- Unfortunately, you broke your left seventh rib. -- It's going to take at least a month to fully recover. Until then, we will not be able to get rid of the pain completely. -- Try to slowly resume your normal activity despite the pain. Prolonged inactivity is terrible for your body. -- Apply heat throughout the day as much as possible to help promote blood flow needed for healing. -- [place] and Lidocaine patches as needed. Again, you are going to have significant pain for a very long time. -- Try propping herself up on pillows. -- Despite the pain, take at least two very deep breaths every hour you are awake. To keep your lungs inflated. -- See your private doctor on 04/01 for recheck. Ask for help until you are completely better. You will need more pain management. -- Seek immediate medical care with intolerable pain, fever, shortness of breath (this is different from pain with breathing), persistent abdominal pain, or with any concerns. Eric Cameron MD Patient data External records reviewed:: [facility] previous records (Per chart review, patient was seen here on 03/06/25 for chest wall contusion.) Clinical information provided by:: patient Social determinants that could affect healthcare access:: none Patient has the following chronic illnesses:: aFib, CAD s/p stents x7, s/p pacemaker placement, HTN, HLD How is presenting disease/condition affected by chronic disease/condition?: uneffected by Evaluation data The following diagnostics were reviewed and interpreted by me:: radiology exam(s) Lab and/or radiology exams considered but not ordered:: none Interpretation Summary: I reviewed all diagnostic test results. My review of the CT chest report is nondisplaced acute fracture left seventh rib anteriorly. Medications / Prescriptions Medications or Prescriptions considered but not ordered:: none Medication administrations:: Medication Administration History Discontinued Medications Hydromorphone HCl (Hydromorphone Inj 2 Mg/Ml Vial) 1 mg IM X1 ONE Stop: 03/09/25 20:08 Last Admin: 03/09/25 21:33 Dose: 1 mg Documented By: BD Lidocaine (Lidocaine 5% 1 Patch) 2 patch TOP X1 ONE Stop: 03/09/25 20:08 Last Admin: 03/09/25 21:34 Dose: 2 patch Documented By: BD Comments: right ribs Ondansetron HCl (Ondansetron Odt 4 Mg Tabrap) 4 mg PO X1 ONE; Protocol Stop: 03/09/25 20:08 Last Admin: 03/09/25 21:33 Dose: 4 mg Documented By: BD Treatment here included: Dilaudid 1 mg IM Lidocaine patches Zofran ODT 4 mg Consultations Consultation(s) initiated? (list below): No Diagnosis Fall Differential Diagnosis: other (Rib fracture, pneumothorax, contusion, sprain, strain) Most likely diagnosis given after review of the tests above:: Fracture of left seventh rib Admission Indicated Admission indicated?: not indicated Explain why admission is indicated or not indicated:: With significant improvement and no condition needing emergent intervention, there was no indication for admission. Admission Request Was there a request for admission?: No Disposition Plan Disposition Plan: Discharge Discharge Attestation Discharge Attestation: The patient and all family members were given an opportunity to ask questions and understood the discharge instructions. Discharge instructions specifically effects, indications for sooner follow up or return to the emergency department, and the expected course of current diagnosis. Patient condition: Stable Discharge Plan Plan Patient Disposition: HOME (Self Care) Prescriptions/Referrals Prescriptions/Med Rec: New hydrocodone-acetaminophen 5-325 mg tablet 2 tab PO Q8H MDD 6 PRN (Reason: pain) Qty: 20 0RF lidocaine [Lidoderm] 5 % adhesive patch,medicated 2 patch topical QDAY PRN (Reason: pain) Qty: 30 0RF Rx Instructions: leave on most painful area for up to 12 hrs No Action clopidogrel 75 mg Tablet 75 mg PO QDAY Eliquis 2.5 mg tablet 5 mg PO QDAY atorvastatin 40 mg tablet 40 mg PO HS Patient Comments: TAKE ONE TABLET BY MOUTH EVERY EVENING AT BED TIME FOR CHOLESTEROL sucralfate [Carafate] 100 mg/mL suspension 5 ml PO QID Qty: 420 0RF Rx Instructions: swish in mouth and swallow; use after food/drink cefdinir 300 mg capsule 300 mg PO BID Qty: 14 0RF alprazolam 0.25 mg tablet 0.25 mg PO QDAY pantoprazole 40 mg tablet,delayed release (DR/EC) 80 mg PO QDAY metoprolol succinate [Toprol XL] 50 mg tablet extended release 24 hr 25 mg PO QDAY meloxicam 7.5 mg tablet 7.5 mg PO QDAY Qty: 10 0RF famotidine 20 mg tablet 20 mg PO QDAY Qty: 30 0RF famotidine [Pepcid] 40 mg tablet 40 mg PO QDAY Qty: 30 0RF metoclopramide HCl [Reglan] 5 mg tablet 5 mg PO Q8H Qty: 30 0RF lidocaine 5 % adhesive patch,medicated 2 patch topical Q24H Qty: 30 0RF Rx Instructions: leave on most painful area for up to 12 hrs Referrals: Isaak Hendrix MD [Primary Care Provider, Family Practice] - In 1 week Problem List Clinical Impression: Fracture of left seventh rib Patient/Caregiver Discharge Instructions Discharge Activity: activity as tolerated Education Materials: ED Rib Fracture Additional Instructions: Discharge instructions from Dr. Cameron: -- Unfortunately, you broke your left seventh rib. -- It's going to take at least a month to fully recover.? Until then, we will not be able to get rid of the pain completely. -- Try to slowly resume your normal activity despite the pain. Prolonged inactivity is terrible for your body. -- Apply heat throughout the day as much as possible to help promote blood flow needed for healing. -- [place] and Lidocaine patches as needed. Again, you are going to have significant pain for a very long time. -- Try propping herself up on pillows. -- Despite the pain, take at least two very deep breaths every hour you are awake.? To keep your lungs inflated. -- See your private doctor on 04/01 for recheck.?? Ask for help until you are completely better.? You will need more pain management. -- Seek immediate medical care with intolerable pain, fever, shortness of breath (this is different from pain with breathing), persistent abdominal pain, or with any concerns. Print Language: Kinyarwanda Stand Alone Forms: [employer] Award Info., Patient Portal Info Letter
--- NOTE | 2025-03-09 20:07 | XR_ITS ---
Examination: CT chest, without intravenous contrast. Sagittal and coronal 2-D reconstructions. Exam date and time: March 09, 2025, 2020 hours, comparison October 31, 2024 INDICATIONS: Patient fell today with injury to the chest, left chest pain CTDI:vol (mGy) 14.21 DLP: (mGycm) 650 Technique: Multiple 3.0 mm axial sections of the chest to been obtained. Bone and lung density settings are obtained. Sagittal and coronal 2-D reconstructions have been obtained. Low dose protocols were performed. One or more of the following dose reduction techniques were used; automated exposure control, adjustment of the mA and/or KV according to patient size, use of iterative reconstruction technique. Findings: Thoracic aorta and pulmonary arteries intact Heavy left main and left anterior descending coronary artery right coronary artery calcification Trace pericardial thickening No pneumothorax Subtle opacity in both upper lobes No hemothorax The manubrium and the body of the sternum intact No thoracic vertebral body compression fracture Alignment of the posterior spinous processes intact Acute nondisplaced fractures left seventh rib No visualized liver splenic or renal laceration, no perinephric hematoma Abdominal aorta is intact No free provide in the abdomen or pelvis Severe calcification proximal superior mesenteric artery image 172 Negative for pneumoperitoneum IMPRESSION: Nondisplaced acute fracture left seventh rib anteriorly Subtle opacity in both upper lung zones consider pulmonary contusion No pneumothorax, no hemothorax Severe coronary artery calcification as above
[2025-03-09 20:37] VITALS: BP 143/75; PULSE 76; RESP 17; TEMP 36.7; O2SAT 95
[2025-03-09] MEDS: ONDANSETRON ODT 4 MG TABRAP PO (21:33)
[2025-03-09] MEDS: HYDROmorphone INJ 2 MG/ML VIAL 1 MG IM (21:33)
[2025-03-09] MEDS: LIDOCAINE 5% 1 PATCH 2 PATCH TOP (21:34)
== END 2025-03-09 21:40 | disposition home or self-care (01) ==
PROVIDERS: Emergency Provider Emergency Medicine; PCP Family Medicine
DX: S22.32XA Fracture of one rib, left side, initial encounter for closed fracture (principal); Z79.01 Long term (current) use of anticoagulants
CPT/HCPCS: 71250; 96372; 99283; J1171; J3490; Q0162

== ENCOUNTER 2025-03-09 22:43 | Emergency (ER) | payer OTHER, MEDICAID, SELFPAY ==
--- NOTE | 2025-03-09 22:46 | PD.EDNV ---
Nausea/Vomit./Diarrhea-RME/HPI General Chief complaint: Nausea/Vomiting/Diarrhea Stated complaint: NAUSEA Time Seen by Provider: 03/09/25 23:24 Arrival date/time: 03/09/25 22:43 RME / HPI RME / HPI Narrative: See MDM for Dr. Cameron's HPI documentation. Related Data Home Medications ?Medication ?Instructions ?Recorded ?Confirmed clopidogrel 75 mg tablet 75 mg PO QDAY 08/06/18 02/23/24 apixaban 2.5 mg tablet (Eliquis) 5 mg PO QDAY 04/08/21 02/23/24 atorvastatin 40 mg tablet 40 mg PO HS 04/08/21 02/23/24 alprazolam 0.25 mg tablet 0.25 mg PO QDAY 02/23/24 02/23/24 Held on 02/23/24. Instructions: Resume on 02/24/24. metoprolol succinate 50 mg 25 mg PO QDAY 02/23/24 02/23/24 tablet,extended release 24 hr (Toprol XL) pantoprazole 40 mg tablet,delayed 80 mg PO QDAY 02/23/24 02/23/24 release Previous Rx's ?Medication ?Instructions ?Recorded sucralfate 100 mg/mL oral 5 ml PO QID #420 mL 03/10/24 suspension (Carafate) famotidine 20 mg tablet 20 mg PO QDAY #30 tabs 07/08/24 meloxicam 7.5 mg tablet 7.5 mg PO QDAY #10 tabs 07/08/24 famotidine 40 mg tablet (Pepcid) 40 mg PO QDAY #30 tabs 10/31/24 metoclopramide HCl 5 mg tablet 5 mg PO Q8H #30 tabs 10/31/24 (Reglan) lidocaine 5 % topical patch 2 patch topical Q24H #30 ea 03/06/25 hydrocodone 5 mg-acetaminophen 325 2 tab PO Q8H PRN pain #20 tabs 03/09/25 mg tablet lidocaine 5 % topical patch 2 patch topical QDAY PRN pain #30 03/09/25 (Lidoderm) ea cefdinir 300 mg capsule 300 mg PO BID #14 caps 03/10/25 Allergies Allergy/AdvReac Type Severity Reaction Status Date / Time aspirin Allergy Severe Nausea Verified 03/06/25 17:42 codeine Allergy Severe CARDIAC Verified 03/06/25 17:42 ARREST Penicillins Allergy Severe WELTS Verified 03/06/25 17:42 morphine Allergy Verified 03/06/25 17:42 Review of Systems Review of Systems Systems Reviewed: All systems reviewed, normal except as documented Past Medical History Past Medical History NEUROLOGIC: Positive Neurological Disorders and Migraine; Negative Seizures CARDIAC: Positive Cardiac Disorders, Atrial Fibrillation, Angina, Coronary Artery Disease, Hypercholesterolemia, Congestive Heart Failure and Hypertension RESPIRATORY: Positive Pneumonia (COVID); Negative Chronic Obstructive Pulmonary Disease (COPD) or Asthma GASTROINTESTINAL: Positive Gastrointestinal Disorders, Gall Bladder Disease and Gastroesophageal Reflux Disease GENITOURINARY: Negative Genitourinary Disorders or Renal Disease REPRODUCTIVE: Positive Previous Pregnancies; Negative Breast Cancer or Pelvic Inflammatory Disease MUSCULOSKELETAL: Positive Musculoskeletal Disorders and Arthritis ENDOCRINE: Negative Endocrine Disorders, Diabetes Mellitus Type 1 or Diabetes Mellitus Type 2 HEMATOLOGIC: Negative Blood Disorders or Sickle Cell Disease PSYCHO/SOCIAL: Positive Anxiety OTHER HISTORY: Positive Chicken Pox, Measles and Mumps; Negative Autoimmune Disease, Shingles, Blood Transfusions, Blood Transfusion Reaction, Anesthesia Reactions, Organ Transplant, MRSA, Clostridium Difficile, Breast Cancer or Cervical Cancer Family History FAMILY HISTORY: Positive Family Cancer; Negative Family Psychiatric Problems, Family Respiratory Disorders, Family Cardiac Disorders, Family Gastrointestinal Problems, Family Surgery or Family Anesthesia Reaction Surgical History SURGICAL: Positive Cardiac Surgery, Coronary Stent, Cardiac Catheterization, Pacemaker, Angiogram, Hysterectomy and Section; Negative Endocrine Surgery, Thyroidectomy, Ear Surgery, Nephrectomy, Joint Replacement, Neurologic Surgery or Organ Transplant Social History SMOKING STATUS: Current every day smoker SUBSTANCE USE: does not use ED Exam Narrative Physical exam: See [facility] for Dr. Cameron's physical exam documentation. Course Quality Measures none Orders Category Date Time Status Saline [Insert IV] NOW Care 03/09/25 22:44 Active Amylase Stat Lab 03/09/25 22:57 Completed Bilirubin,Direct Stat Lab 03/09/25 22:57 Completed CBC Stat Lab 03/09/25 22:57 Completed CMP [Comprehensive Metabolic Panel] Stat Lab 03/09/25 22:57 Completed Lipase Stat Lab 03/09/25 22:57 Completed Magnesium Stat Lab 03/09/25 22:57 Completed UA, C/S IF [Urinalysis, C/S if Indicated] Stat Lab 03/10/25 00:40 Completed Urine Culture Stat Lab 03/10/25 00:40 Received LORazepam [Ativan Inj] Med 03/10/25 00:25 Discontinued 0.75 mg IVP X1 ONE Ondansetron Inj [Zofran Inj] Med 03/09/25 22:44 Discontinued 4 mg IVP X1 ONE Ondansetron Inj [Zofran Inj] Med 03/09/25 23:36 Discontinued 4 mg IVP X1 ONE Ringers Lactated 1000 ml [Lactated Ringers] 1,000 ml Med 03/09/25 22:44 Discontinued IV 1,000 mls/hr Ringers Lactated 1000 ml [Lactated Ringers] 1,000 ml Med 03/09/25 23:36 Discontinued IV 500 mls/hr cefTRIAXone/D5w 1gm IV premix [Rocephin/D5w 1gm IV Med 03/10/25 01:50 Discontinued premix] 1 gm in 50 ml IV X1 Vital Signs Vital signs: Vital Signs Temperature 97.3 F 03/09/25 22:54 Pulse Rate 61 03/09/25 22:54 Respiratory Rate 18 03/09/25 22:54 Blood Pressure 193/82 H 03/09/25 22:54 Pulse Oximetry (%) 88 L 03/09/25 22:54 Oxygen Delivery Method Room Air 03/09/25 22:54 Nausea/Vomiting/Diarrhea MDM Narrative MDM Narrative:: This section includes all my notes and documentations, including HPI, PE, and ED course. Eric Cameron MD HPI: 73yo female BIBA from home with severe vomiting. I take care of her here a couple of hours ago. With rib fracture, she was given Dilaudid 1 mg IM. No other complaints. ROS: All negative except as documented in HPI. Physical Exam: General: Alert and oriented. Eyes: Conjunctivae and lids clear. ENT: No nasal congestion. Neck: Supple. Heart: RRR. Lungs: No respiratory distress. Good air movement. No rhonchi, wheezing, rales. Abdomen: Soft and nontender. Normal bowel sounds. No distension. No rebound or guarding. Back: No CVA tenderness. Skin: Warm and dry. Neuro: Alert and oriented X 3. I reviewed EMS notes. I reviewed all diagnostic test results. Blood tests are unremarkable. UA remarkable for 1+ bacteria. At this point, diagnoses include: Fracture of left seventh rib UTI (urinary tract infection) Vomiting from Dilaudid Treatment here included: IVF Zofran IV Rocephin 1 g IV With no improvement, she was given Ativan 0.75 mg IV. Significant permit noted. Recommended supportive care. Based on my best medical judgment, made decision no further evaluation or treatment indicated at this time. Patient understands and agrees to the discharge instructions customized and printed, see below. Discharge Instructions from Dr. Cameron printed for you: -- We are extremely sorry you had adverse side effects from Dilaudid. -- As you know, you broke your left seventh rib. -- It's going to take at least a month to fully recover. Until then, we will not be able to get rid of the pain completely. -- Try to slowly resume your normal activity despite the pain. Prolonged inactivity is terrible for your body. -- Apply heat throughout the day as much as possible to help promote blood flow needed for healing. -- [place] and Lidocaine patches as needed. Again, you are going to have significant pain for a very long time. -- Try propping herself up on pillows. -- Despite the pain, take at least two very deep breaths every hour you are awake. To keep your lungs inflated. -- Take cefdinir for urine infection. For good hydration, increase oral fluid and maintain clear urine. If dark or yellow, increase oral fluid. -- See your private doctor on 03/12/25 for recheck. Ask for help until you are completely better. You will need more pain management. Ask to check urine culture results from today. -- Seek immediate medical care with intolerable pain, fever, shortness of breath (this is different from pain with breathing), persistent abdominal pain, or with any concerns. Eric Cameron MD Patient data External records reviewed:: [facility] previous records (Per chart review, patient was seen here earlier for a fracture of the left seventh rib.) and EMS form Clinical information provided by:: patient Social determinants that could affect healthcare access:: none Patient has the following chronic illnesses:: aFib, CAD s/p stents x7, s/p pacemaker placement, HTN, HLD How is presenting disease/condition affected by chronic disease/condition?: uneffected by Evaluation data The following diagnostics were reviewed and interpreted by me:: lab results Lab and/or radiology exams considered but not ordered:: none Interpretation Summary: I reviewed all diagnostic test results. Blood tests are unremarkable. UA remarkable for 1+ bacteria. Medications / Prescriptions Medications / Prescriptions considered but not ordered:: none Medication administrations:: Medication Administration History Discontinued Medications Lactated Ringer's (Lactated Ringers) 1,000 mls @ 1,000 mls/hr IV .Q1H ONE Stop: 03/09/25 23:43 Last Infusion: 03/10/25 00:00 Dose: Infused Documented By: Admin: 03/09/25 23:00 Dose: 1,000 mls/hr Documented By: CCT Lactated Ringer's (Lactated Ringers) 1,000 mls @ 500 mls/hr IV .Q2H ONE Stop: 03/10/25 01:35 Last Infusion: 03/10/25 02:15 Dose: Infused Documented By: Admin: 03/10/25 00:04 Dose: 500 mls/hr Documented By: CCT Ceftriaxone Sodium/Dextrose (Rocephin/D5w 1gm Iv Premix) 1 gm in 50 mls @ 100 mls/hr IV X1 ONE Stop: 03/10/25 02:19 Last Admin: 03/10/25 02:18 Dose: 100 mls/hr Documented By: CCT Lorazepam (Lorazepam 2 Mg/Ml Vial) 0.75 mg IVP X1 ONE Stop: 03/10/25 00:26 Last Admin: 03/10/25 00:39 Dose: 0.75 mg Documented By: CCT Ondansetron HCl (Ondansetron Inj 2 Mg/Ml Inj 2 Ml) 4 mg IVP X1 ONE; Protocol Stop: 03/09/25 22:45 Last Admin: 03/09/25 23:00 Dose: 4 mg Documented By: CCT Ondansetron HCl (Ondansetron Inj 2 Mg/Ml Inj 2 Ml) 4 mg IVP X1 ONE; Protocol Stop: 03/09/25 23:37 Last Admin: 03/10/25 00:04 Dose: 4 mg Documented By: CCT Treatment here included: IVF Zofran IV Rocephin 1 g IV With no improvement, she was given Ativan 0.75 mg IV. Significant permit noted. Consultations Consultation(s) initiated? (list below): No Diagnosis Nausea Differential Diagnosis: gastroenteritis, drug-induced nausea and vomiting and dehydration Most likely diagnosis given after review of the tests above:: Fracture of left seventh rib UTI (urinary tract infection) Vomiting from Dilaudid Admission Indicated Admission indicated?: not indicated Explain why admission is indicated or not indicated:: With significant improvement and no condition needing emergent intervention, there was no indication for admission. Admission Request Was there a request for admission?: No Disposition Plan Disposition Plan: Discharge Discharge Attestation Discharge Attestation: The patient and all family members were given an opportunity to ask questions and understood the discharge instructions. Discharge instructions specifically effects, indications for sooner follow up or return to the emergency department, and the expected course of current diagnosis. Patient condition: Stable Discharge Plan Plan Patient Disposition: HOME (Self Care) Prescriptions/Referrals Prescriptions/Med Rec: New cefdinir 300 mg capsule 300 mg PO BID Qty: 14 0RF No Action clopidogrel 75 mg Tablet 75 mg PO QDAY Eliquis 2.5 mg tablet 5 mg PO QDAY atorvastatin 40 mg tablet 40 mg PO HS Patient Comments: TAKE ONE TABLET BY MOUTH EVERY EVENING AT BED TIME FOR CHOLESTEROL sucralfate [Carafate] 100 mg/mL suspension 5 ml PO QID Qty: 420 0RF Rx Instructions: swish in mouth and swallow; use after food/drink alprazolam 0.25 mg tablet 0.25 mg PO QDAY pantoprazole 40 mg tablet,delayed release (DR/EC) 80 mg PO QDAY metoprolol succinate [Toprol XL] 50 mg tablet extended release 24 hr 25 mg PO QDAY meloxicam 7.5 mg tablet 7.5 mg PO QDAY Qty: 10 0RF famotidine 20 mg tablet 20 mg PO QDAY Qty: 30 0RF famotidine [Pepcid] 40 mg tablet 40 mg PO QDAY Qty: 30 0RF metoclopramide HCl [Reglan] 5 mg tablet 5 mg PO Q8H Qty: 30 0RF lidocaine 5 % adhesive patch,medicated 2 patch topical Q24H Qty: 30 0RF Rx Instructions: leave on most painful area for up to 12 hrs hydrocodone-acetaminophen 5-325 mg tablet 2 tab PO Q8H MDD 6 PRN (Reason: pain) Qty: 20 0RF lidocaine [Lidoderm] 5 % adhesive patch,medicated 2 patch topical QDAY PRN (Reason: pain) Qty: 30 0RF Rx Instructions: leave on most painful area for up to 12 hrs Referrals: No Primary/Family,Physician [Primary Care Provider] - In 1 week Problem List Clinical Impression: Fracture of left seventh rib, UTI (urinary tract infection) Patient/Caregiver Discharge Instructions Discharge Activity: activity as tolerated Education Materials: ED Rib Fracture, ED CYSTITIS Female Adult Additional Instructions: Discharge Instructions from Dr. Cameron printed for you: -- We are extremely sorry you had adverse side effects from Dilaudid. -- As you know, you broke your left seventh rib. -- It's going to take at least a month to fully recover. Until then, we will not be able to get rid of the pain completely. -- Try to slowly resume your normal activity despite the pain. Prolonged inactivity is terrible for your body. -- Apply heat throughout the day as much as possible to help promote blood flow needed for healing. -- [place] and Lidocaine patches as needed. Again, you are going to have significant pain for a very long time. -- Try propping herself up on pillows. -- Despite the pain, take at least two very deep breaths every hour you are awake. To keep your lungs inflated. -- Take cefdinir for urine infection. For good hydration, increase oral fluid and maintain clear urine. If dark or yellow, increase oral fluid. -- See your private doctor on 03/12/25 for recheck. Ask for help until you are completely better. You will need more pain management. Ask to check urine culture results from today. -- Seek immediate medical care with intolerable pain, fever, shortness of breath (this is different from pain with breathing), persistent abdominal pain, or with any concerns. Print Language: Citizen [place] Stand Alone Forms: Tiffany Award Info., Patient Portal Info Letter
[2025-03-09 22:54] VITALS: BP 193/82; PULSE 61; RESP 18; TEMP 36.3; O2SAT 88
[2025-03-09 22:55] VITALS: PULSE 73; O2SAT 98
[2025-03-09 22:59] VITALS: BMI 32.9
[2025-03-09] MEDS: ONDANSETRON INJ 2 MG/ML INJ 2 ML 4 MG IVP (23:00)
[2025-03-09] MEDS: RINGERS LACTATED 1000 ML 1,000 ML IV (23:00)
[2025-03-09 23:04] LABS: Basophils # (Auto) 0.0 Thou/mm3 (0.0-0.2); Basophils % (Auto) 0 % (0-2.5); Eosinophils # (Auto) 0.2 Thou/mm3 (0.0-0.5); Eosinophils % (Auto) 2 % (0-10); Hematocrit 40.1 % (36.0-46.0); Hemoglobin 13.1 g/dL (12.0-16.0); Immature Granulocytes Auto 0.05 Thou/mm3 (0.00-0.00); Lymphocytes # (Auto) 4.4 Thou/mm3 (1.0-4.8); Lymphocytes % (Auto) 44 % (10-50); Mean Corpuscular HGB Conc 32.7 g/dl (31.0-37.0); Mean Corpuscular Hemoglobin 28.3 pg (25.0-35.0); Mean Corpuscular Volume 87 fL (80-100); Monocytes # (Auto) 0.8 Thou/mm3 (0.0-0.8); Monocytes % (Auto) 8 % (0-12); Neutrophils # (Auto) 4.4 Thou/mm3 (1.8-7.7); Neutrophils % (Auto) 45 % (37-80); Nucleated Red Blood Cell # 0.00 Thou/mm3 (0.00-0.00); Nucleated Red Blood Cell % 0 /100 WBC (0); Platelet Count 279 Thou/mm3 (140-440); RDW Standard Deviation 41.4 fL (36.4-46.3); Red Blood Count 4.63 Miln/mm3 (4.00-5.20); White Blood Count 10.0 Thou/mm3 (3.6-11.0)
[2025-03-09 23:18] VITALS: O2SAT 94
[2025-03-09 23:26] LABS: Alanine Aminotransferase 13 U/L (10-49); Albumin, Serum 4.5 gm/dL (3.4-4.8); Albumin/Globulin Ratio 1.7 (1.2-2.2); Alkaline Phosphatase 87 U/L (46-116); Amylase 98 U/L (30-118); Anion Gap 9 (7-16); Aspartate Amino Transferase 20 U/L (0-34); BUN/Creatinine Ratio 11 Ratio (12-20); Bilirubin,Direct < 0.1 mg/dL (0.0-0.3); Bilirubin,Total 0.3 mg/dL (0.3-1.2); Blood Urea Nitrogen 10 mg/dL (9-23); Calcium 10.3 mg/dL (8.3-10.6); Calcium (Corrected) 10.3 mg/dL (8.5-10.1); Carbon Dioxide 24.2 mMol/L (20.0-31.0); Chloride 108 mMol/L (98-107); Creatinine (Component) 0.9 mg/dL (0.6-1.3); Estimated Creatinine Clearance 54.3 mL/min (>60); Globulin 2.7 gm/dL (2.3-3.5); Glucose 128 mg/dL (74-106); Lipase 38 U/L (12-53); Magnesium 2.1 mg/dL (1.6-2.6); Osmolality,Calculated 282 (275-295); Potassium 3.8 mMol/L (3.4-5.1); Sodium 141 mMol/L (136-145); Total Protein 7.2 gm/dL (5.7-8.2); eGFR > 60 See Note
[2025-03-10] MEDS: RINGERS LACTATED 1000 ML 1,000 ML 500 ML IV (00:04)
[2025-03-10] MEDS: ONDANSETRON INJ 2 MG/ML INJ 2 ML 4 MG IVP (00:04)
[2025-03-10] MEDS: LORazepam 2 MG/ML VIAL 0.75 MG IVP (00:39)
[2025-03-10 01:00] VITALS: BP 150/71; PULSE 60; RESP 16; TEMP 36.4; O2SAT 96
[2025-03-10 01:05] LABS: Collection Type, Urine Clean Catch
[2025-03-10 01:13] LABS: Bacteria,Urine 1+; Bilirubin,Urine Negative (Negative); Blood,Urine Negative (Negative); Clarity,Urine Clear (Clear/Hazy); Color,Urine Lt-Yellow (Lt Yel-Yel); Glucose, Urine Negative (Negative); Ketones,Urine Negative (Negative); Leukocyte Esterase,Urine Negative (Negative); Nitrite,Urine Negative (Negative); PH,Urine 6.5 (5.0-7.0); Protein,Urine Negative (Neg - Trace); RBC,Urine 1 /hpf (0-3); Specific Gravity,Urine 1.012 (1.001-1.035); Squamous Epithelial Cell,Urine 2 /hpf (0-5); Urobilinogen,Urine Negative mg/dL (0.0-1.0); WBC,Urine 2 /hpf (0-5)
[2025-03-10 01:14] LABS: Culture Indicated,Urine Yes
[2025-03-10] MEDS: cefTRIAXone/D5w 1gm IV premix 1 GM/50 ML BAG IV (02:18)
[2025-03-10 02:55] VITALS: BP 136/54; PULSE 60; RESP 16; TEMP 36.6; O2SAT 96
== END 2025-03-10 02:55 | disposition home or self-care (01) ==
PROVIDERS: Emergency Provider Emergency Medicine
DX: S22.32XA Fracture of one rib, left side, initial encounter for closed fracture (principal); N39.0 Urinary tract infection, site not specified; X50.0XXA Overexertion from strenuous movement or load, initial encounter
CPT/HCPCS: 36415; 80053; 81001; 82150; 82248; 83690; 83735; 85025; 87086; 96361; 96365; 96375; 96376; 99283; J0696; J2060; J2405; J7120